=== PATIENT | female | born 1985 | race Caucasian/White ===

== ENCOUNTER 2023-11-16 16:50 | Inpatient (IN) | payer BC ==
[2023-11-16 17:57] VITALS: BMI 27.6
[2023-11-16] MEDS ORDERED: POLYETHYLENE GLYCOL (HEALTHYLAX) 3350 17 GM PACKET PO PRN (19:25)
[2023-11-16] MEDS ORDERED: NICOTINE POLACRILEX 2 MG GUM BUC PRN (19:25)
[2023-11-16] MEDS ORDERED: BENZONATATE 200 MG CAPSULE PO PRN (19:25)
[2023-11-16] MEDS ORDERED: NICOTINE POLACRILEX 2 MG LOZENGE BC PRN (19:25)
[2023-11-16] MEDS ORDERED: NALOXONE (NARCAN) HCL 4 MG/0.1 ML SPRAY NS PRN (19:25)
[2023-11-16] MEDS ORDERED: ACETAMINOPHEN 325 MG TABLET (FP) PO PRN (19:25)
[2023-11-16] MEDS ORDERED: guaiFENesin 600 MG TABLET.ER (FP) PO PRN (19:25)
[2023-11-16] MEDS ORDERED: NALOXONE HCL 0.4 MG/ML VIAL IM PRN (19:25)
[2023-11-16] MEDS ORDERED: ONDANSETRON *ODT* 4 MG TABLET SL PRN (19:25)
[2023-11-16] MEDS ORDERED: BENZOCAINE/MENTHOL (CHLORASEPTIC ) LOZENGE MM PRN (19:25)
[2023-11-16] MEDS ORDERED: DICYCLOMINE HCL 10 MG CAPSULE PO PRN (19:25)
[2023-11-16] MEDS ORDERED: IBUPROFEN 600 MG TABLET (FP) PO PRN (19:25)
[2023-11-16] MEDS ORDERED: P-EPHED 60MG/TRIPROLIDI 2.5MG TABLET PO PRN (19:25)
[2023-11-16] MEDS ORDERED: MAGNESIUM HYDROX 2400MG/30ML ORAL SUSPENSION 30 ML CUP PO PRN (19:25)
[2023-11-16] MEDS ORDERED: BISMUTH SUBSALICYLATE 524 MG/30 ML PO PRN (19:25)
[2023-11-16] MEDS ORDERED: IBUPROFEN 400 MG TABLET (FP) PO PRN (19:25)
[2023-11-16] MEDS ORDERED: LOPERAMIDE HCL 2 MG CAPSULE PO PRN (19:25)
[2023-11-16] MEDS: hydrOXYzine PAMOATE 25 MG CAPSULE (FP) PO PRN (20:32)
[2023-11-16] MEDS: METHOCARBAMOL 500 MG TABLET PO PRN (20:32)
[2023-11-16] MEDS: MELATONIN 5 MG TABLETS PO SCH (23:51)
[2023-11-16] MEDS: THIAMINE 100 MG TABLET PO SCH (23:51)
[2023-11-17] MEDS: PRENATAL VITAMINS W/ FOLIC ACID TABLET (FP) PO SCH (09:57)
[2023-11-17] MEDS ORDERED: clonazePAM 0.5 MG ODT TABLETS SL PRN (11:05)
[2023-11-17] MEDS: methaDONE HCL 10 MG TABLET (FOR DETOX USE ONLY) PO ONE (11:23)
[2023-11-17] MEDS: diazePAM 5 MG TABLET PO SCH (11:24)
[2023-11-17 13:26] LABS: POTASSIUM 3.7 mmol/L (3.5-5.1)
[2023-11-17 13:29] LABS: HEMATOCRIT 38.4 % (32.4-45.2); HEMOGLOBIN 13.2 GM/dL (10.7-15.3); MCH 29.9 pg (25.7-33.7); MCHC 34.3 g/dl (32.0-36.0); MEAN PLT VOLUME 7.3 fl (7.5-11.1); PLATELET COUNT 344 10^3/uL (134-434); RBC 4.42 M/mm3 (3.60-5.2); RDW 13.9 % (11.6-15.6); WHITE BLOOD COUNT 7.4 K/mm3 (4.0-10.0)
[2023-11-17 13:51] LABS: ALBUMIN 3.2 g/dl (3.4-5.0); BLOOD UREA NITROGEN 12.4 mg/dL (7-18); CALCIUM 8.8 mg/dL (8.5-10.1)
[2023-11-17 13:56] LABS: TOT PROT 6.7 g/dl (6.4-8.2)
[2023-11-17 13:58] LABS: BILIRUBIN,TOTAL 0.5 mg/dL (0.2-1); CREATININE 0.8 mg/dL (0.55-1.3)
[2023-11-18] MEDS: diazePAM 5 MG TABLET PO PRN (04:40)
[2023-11-18] MEDS: diazePAM 5 MG TABLET PO SCH (05:35)
[2023-11-18] MEDS ORDERED: methaDONE 40 MG, methaDONE 10 MG PO ONE (10:00)
[2023-11-18] MEDS: methaDONE HCL 40 MG DISPERSABLE TABLET PO ONE (10:04)
[2023-11-19] MEDS: diazePAM 5 MG TABLET PO SCH (05:37)
[2023-11-19] MEDS: methaDONE 40 MG, methaDONE 10 MG PO ONE (09:59)
[2023-11-19] MEDS ORDERED: methaDONE HCL 40 MG DISPERSABLE TABLET PO ONE (10:00)
[2023-11-19] MEDS ORDERED: methaDONE HCL 10 MG TABLET (FOR DETOX USE ONLY) PO ONE (10:00)
[2023-11-19] MEDS: amLODIPine BESYLATE 5 MG TABLET (FP) PO SCH (14:30)
[2023-11-20] MEDS ORDERED: cloNIDine HCL 0.1 MG TABLET PO PRN
[2023-11-20] MEDS: diazePAM 5 MG TABLET PO ONE (05:52)
[2023-11-20] MEDS: methaDONE 40 MG, methaDONE 20 MG PO ONE (09:37)
[2023-11-20] MEDS ORDERED: methaDONE HCL 40 MG DISPERSABLE TABLET PO ONE (10:00)
[2023-11-21] MEDS: methaDONE 40 MG, methaDONE 30 MG PO ONE (09:46)
[2023-11-21] MEDS ORDERED: methaDONE HCL 40 MG DISPERSABLE TABLET PO ONE (10:00)
[2023-11-21] MEDS ORDERED: methaDONE HCL 10 MG TABLET (FOR DETOX USE ONLY) PO ONE (10:00)
[2023-11-21] MEDS: diazePAM 5 MG TABLET PO ONE (10:04)
[2023-11-21] MEDS: MAG HYDROX/AL HYDROX/SIMETH 30 ML UNIT-DOSE CUP PO PRN (11:18)
[2023-11-22 09:48] VITALS: BP 124/62; PULSE 89; RESP 18; TEMP 97.3
[2023-11-22] MEDS: methaDONE HCL 40 MG DISPERSABLE TABLET PO ONE (09:58)
== END 2023-11-22 10:02 | disposition home or self-care (01) | DRG 773 ==
LOC: YASAS 16:50 → Y6N 19:45
PROVIDERS: ADMIT Allergy & Immunology; ATTEND Surgery
PROC: HZ2ZZZZ Detoxification Services for Substance Abuse Treatment (ICD-10-PCS; principal; 2023-11-16)
DX: F11.23 Opioid dependence with withdrawal (principal); F13.230 Sedative, hypnotic or anxiolytic dependence with withdrawal, uncomplicated; F14.20 Cocaine dependence, uncomplicated; F17.210 Nicotine dependence, cigarettes, uncomplicated; F41.9 Anxiety disorder, unspecified; I10 Essential (primary) hypertension
CPT/HCPCS: 36415; 80053; 80305; 80307; 81025; 83036; 85027; 86780; 93005; 93010

== ENCOUNTER 2023-12-10 13:59 | Inpatient (IN) | payer BC ==
[2023-12-10 14:53] VITALS: BMI 27.2
[2023-12-10] MEDS ORDERED: POLYETHYLENE GLYCOL (HEALTHYLAX) 3350 17 GM PACKET PO PRN (16:37)
[2023-12-10] MEDS ORDERED: MAGNESIUM HYDROX 2400MG/30ML ORAL SUSPENSION 30 ML CUP PO PRN (16:37)
[2023-12-10] MEDS ORDERED: DICYCLOMINE HCL 10 MG CAPSULE PO PRN (16:37)
[2023-12-10] MEDS ORDERED: BENZONATATE 200 MG CAPSULE PO PRN (16:37)
[2023-12-10] MEDS ORDERED: BISMUTH SUBSALICYLATE 524 MG/30 ML PO PRN (16:37)
[2023-12-10] MEDS ORDERED: NALOXONE HCL 0.4 MG/ML VIAL IM PRN (16:37)
[2023-12-10] MEDS ORDERED: BENZOCAINE/MENTHOL (CHLORASEPTIC ) LOZENGE MM PRN (16:37)
[2023-12-10] MEDS ORDERED: ONDANSETRON *ODT* 4 MG TABLET SL PRN (16:37)
[2023-12-10] MEDS ORDERED: guaiFENesin 600 MG TABLET.ER (FP) PO PRN (16:37)
[2023-12-10] MEDS ORDERED: MAG HYDROX/AL HYDROX/SIMETH 30 ML UNIT-DOSE CUP PO PRN (16:37)
[2023-12-10] MEDS ORDERED: NALOXONE (NARCAN) HCL 4 MG/0.1 ML SPRAY NS PRN ×2 (16:37→16:40)
[2023-12-10] MEDS ORDERED: LOPERAMIDE HCL 2 MG CAPSULE PO PRN (16:37)
[2023-12-10] MEDS ORDERED: methaDONE HCL 10 MG TABLET (FOR DETOX USE ONLY) ONE (17:25)
[2023-12-10] MEDS ORDERED: cloNIDine HCL 0.1 MG TABLET ONE (17:26)
[2023-12-10] MEDS ORDERED: NICOTINE 7 MG/24 HOURS TOPICAL PATCH TD ONE (17:26)
[2023-12-10] MEDS ORDERED: PRENATAL VITAMINS W/ FOLIC ACID TABLET (FP) PO ONE (17:26)
[2023-12-10] MEDS: NICOTINE 7 MG/24 HOURS TOPICAL PATCH TD SCH (17:32)
[2023-12-10] MEDS: methaDONE HCL 10 MG TABLET (FOR DETOX USE ONLY) PO ONE (17:33)
[2023-12-10] MEDS: PRENATAL VITAMINS W/ FOLIC ACID TABLET (FP) PO SCH (17:35)
[2023-12-10] MEDS: cloNIDine HCL 0.1 MG TABLET PO SCH (17:36)
[2023-12-10] MEDS: THIAMINE 100 MG TABLET PO SCH (22:03)
[2023-12-10] MEDS: CEFUROXIME AXETIL 500 MG TABLET PO SCH (22:04)
[2023-12-10] MEDS: MELATONIN 5 MG TABLETS PO SCH (22:05)
[2023-12-10] MEDS: BUPRENORPHINE/NALOXONE 0.5 MG/0.125 MG FILM SL ONE (22:07)
[2023-12-11] MEDS: BUPRENORPHINE/NALOXONE 0.5 MG/0.125 MG FILM SL SCH (09:17)
[2023-12-11 12:12] LABS: HEMATOCRIT 38.5 % (32.4-45.2); MCH 29.2 pg (25.7-33.7); MCHC 33.8 g/dl (32.0-36.0); MEAN CELL VOLUME 86.4 fl (80-96); MEAN PLT VOLUME 7.1 fl (7.5-11.1); PLATELET COUNT 327 10^3/uL (134-434); RBC 4.45 M/mm3 (3.60-5.2); RDW 13.9 % (11.6-15.6); WHITE BLOOD COUNT 7.4 K/mm3 (4.0-10.0)
[2023-12-11 12:19] LABS: POTASSIUM 4.5 mmol/L (3.5-5.1)
[2023-12-11 12:22] LABS: CALCIUM 8.8 mg/dL (8.5-10.1)
[2023-12-11 12:23] LABS: ALBUMIN 3.2 g/dl (3.4-5.0); BLOOD UREA NITROGEN 13.5 mg/dL (7-18)
[2023-12-11 12:25] LABS: CREATININE 0.7 mg/dL (0.55-1.3)
[2023-12-11 12:36] LABS: BILIRUBIN,TOTAL 0.6 mg/dL (0.2-1); TOT PROT 7.3 g/dl (6.4-8.2)
[2023-12-11 12:51] LABS: HIV INTERPRETATION NEGATIVE (NEGATIVE)
[2023-12-12] MEDS: methaDONE HCL 10 MG TABLET (FOR DETOX USE ONLY) PO ONE (09:28)
[2023-12-12] MEDS: BUPRENORPHINE/NALOXONE 2 MG/0.5 MG FILM PACKET SL SCH (09:29)
[2023-12-13] MEDS: DEXTROAMPHETAMINE/AMPHETAMINE 10 MG CAP.ER.24H PO SCH (09:36)
[2023-12-13] MEDS: BUPRENORPHINE/NALOXONE 4 MG/1 MG FILM PACKET SL SCH (09:36)
[2023-12-13] MEDS: hydrOXYzine PAMOATE 25 MG CAPSULE (FP) PO PRN (17:51)
[2023-12-14] MEDS: IBUPROFEN 400 MG TABLET (FP) PO PRN (06:09)
[2023-12-14] MEDS: methaDONE HCL 10 MG TABLET (FOR DETOX USE ONLY) PO ONE (09:10)
[2023-12-14] MEDS: BUPRENORPHINE/NALOXONE 8 MG/2 MG FILM PACKET SL SCH (09:11)
[2023-12-14] MEDS: clonazePAM 0.5 MG ODT TABLETS SL SCH (11:01)
[2023-12-14] MEDS: IBUPROFEN 600 MG TABLET (FP) PO PRN (17:52)
[2023-12-14] MEDS: METHOCARBAMOL 500 MG TABLET PO PRN (17:54)
[2023-12-14] MEDS: ACETAMINOPHEN 325 MG TABLET (FP) PO PRN (22:09)
[2023-12-15 07:32] VITALS: RESP 16
[2023-12-15 09:20] VITALS: BP 136/83; PULSE 97; TEMP 98
[2023-12-15] MEDS: BUPRENORPHINE/NALOXONE 8 MG/2 MG FILM PACKET SL SCH (09:25)
== END 2023-12-15 09:52 | disposition home or self-care (01) | DRG 773 ==
LOC: YASAS 13:59 → Y3N 16:57
PROVIDERS: ADMIT Allergy & Immunology; ATTEND Surgery
PROC: HZ2ZZZZ Detoxification Services for Substance Abuse Treatment (ICD-10-PCS; principal; 2023-12-10)
DX: F11.23 Opioid dependence with withdrawal (principal); F14.20 Cocaine dependence, uncomplicated; F13.20 Sedative, hypnotic or anxiolytic dependence, uncomplicated; F17.210 Nicotine dependence, cigarettes, uncomplicated; Z86.59 Personal history of other mental and behavioral disorders
CPT/HCPCS: 36415; 80053; 80305; 81025; 85027; 86780; 86803; 87389

== ENCOUNTER 2024-02-26 11:51 | Inpatient (IN) | payer BC ==
[2024-02-26 12:30] VITALS: BMI 24.2
[2024-02-26] MEDS ORDERED: POLYETHYLENE GLYCOL (HEALTHYLAX) 3350 17 GM PACKET PO PRN (13:17)
[2024-02-26] MEDS ORDERED: DICYCLOMINE HCL 10 MG CAPSULE PO PRN (13:17)
[2024-02-26] MEDS ORDERED: LOPERAMIDE HCL 2 MG CAPSULE PO PRN (13:17)
[2024-02-26] MEDS ORDERED: P-EPHED 60MG/TRIPROLIDI 2.5MG TABLET PO PRN (13:17)
[2024-02-26] MEDS ORDERED: BISMUTH SUBSALICYLATE 262 MG/15 ML BTL PO PRN (13:17)
[2024-02-26] MEDS ORDERED: ONDANSETRON *ODT* 4 MG TABLET SL PRN (13:17)
[2024-02-26] MEDS ORDERED: ACETAMINOPHEN 325 MG TABLET (FP) PO PRN (13:17)
[2024-02-26] MEDS ORDERED: BENZONATATE 200 MG CAPSULE PO PRN (13:17)
[2024-02-26] MEDS ORDERED: MAGNESIUM HYDROX 2400MG/30ML ORAL SUSPENSION 30 ML CUP PO PRN (13:17)
[2024-02-26] MEDS ORDERED: IBUPROFEN 600 MG TABLET (FP) PO PRN (13:17)
[2024-02-26] MEDS ORDERED: NALOXONE (NARCAN) HCL 4 MG/0.1 ML SPRAY NS PRN (13:17)
[2024-02-26] MEDS ORDERED: MAG HYDROX/AL HYDROX/SIMETH 30 ML UNIT-DOSE CUP PO PRN (13:17)
[2024-02-26] MEDS ORDERED: guaiFENesin 600 MG TABLET.ER (FP) PO PRN (13:17)
[2024-02-26] MEDS ORDERED: NICOTINE POLACRILEX 2 MG GUM BUC PRN (13:17)
[2024-02-26] MEDS ORDERED: IBUPROFEN 400 MG TABLET (FP) PO PRN (13:17)
[2024-02-26] MEDS ORDERED: BENZOCAINE/MENTHOL (CHLORASEPTIC ) LOZENGE MM PRN (13:17)
[2024-02-26] MEDS ORDERED: NICOTINE POLACRILEX 2 MG LOZENGE BC PRN (13:17)
[2024-02-26] MEDS: NALOXONE (NYS OPIOID OVERDOSE PROGRAM) 4 MG/0.1 ML SPRAY NS ONE (14:20)
[2024-02-26] MEDS: CLINDAMYCIN HCL 150 MG CAPSULE (FP) PO SCH (15:00)
[2024-02-26] MEDS: diazePAM 5 MG TABLET PO PRN (17:20)
[2024-02-26] MEDS: methaDONE HCL 10 MG TABLET (FOR DETOX USE ONLY) PO ONE (19:04)
[2024-02-26] MEDS: cloNIDine HCL 0.1 MG TABLET PO PRN (21:13)
[2024-02-26] MEDS: METHOCARBAMOL 500 MG TABLET PO PRN (21:25)
[2024-02-26] MEDS: THIAMINE 100 MG TABLET PO SCH (21:25)
[2024-02-26] MEDS ORDERED: methaDONE HCL 10 MG TABLET (FOR DETOX USE ONLY) PO ONE (22:00)
[2024-02-27] MEDS: PRENATAL VITAMINS W/ FOLIC ACID TABLET (FP) PO SCH (10:08)
[2024-02-27 12:16] LABS: HEMATOCRIT 40.2 % (32.4-45.2); HEMOGLOBIN 13.5 GM/dL (10.7-15.3); MCHC 33.5 g/dl (32.0-36.0); MEAN CELL VOLUME 83.7 fl (80-96); MEAN PLT VOLUME 7.1 fl (7.5-11.1); PLATELET COUNT 632 10^3/uL (134-434); RDW 14.9 % (11.6-15.6); WHITE BLOOD COUNT 6.2 K/mm3 (4.0-10.0)
[2024-02-27 12:51] LABS: POTASSIUM 4.8 mmol/L (3.5-5.1)
[2024-02-27 12:55] LABS: ALBUMIN 3.3 g/dl (3.4-5.0); CALCIUM 9.5 mg/dL (8.5-10.1)
[2024-02-27 12:56] LABS: BLOOD UREA NITROGEN 13.5 mg/dL (7-18)
[2024-02-27 12:59] LABS: CREATININE 0.7 mg/dL (0.55-1.3)
[2024-02-27 13:00] LABS: BILIRUBIN,TOTAL 0.6 mg/dL (0.2-1); TOT PROT 7.6 g/dl (6.4-8.2)
[2024-02-28] MEDS: methaDONE HCL 10 MG TABLET (FOR DETOX USE ONLY) PO ONE (10:06)
[2024-02-28 15:07] LABS: BASO % 2.9 % (0-2.0); EOS % 2.2 % (0-4.5); HEMATOCRIT 39.9 % (32.4-45.2); HEMOGLOBIN 13.4 GM/dL (10.7-15.3); LYMPH % 21.9 % (8-40); MCH 28.7 pg (25.7-33.7); MCHC 33.6 g/dl (32.0-36.0); MEAN CELL VOLUME 85.4 fl (80-96); MEAN PLT VOLUME 7.1 fl (7.5-11.1); MONO % 4.1 % (3.8-10.2); NEUT % 68.9 % (42.8-82.8); PLATELET COUNT 652 10^3/uL (134-434); RBC 4.67 M/mm3 (3.60-5.2); RDW 14.8 % (11.6-15.6); WHITE BLOOD COUNT 7.6 K/mm3 (4.0-10.0)
[2024-02-28 15:39] LABS: POTASSIUM 4.5 mmol/L (3.5-5.1)
[2024-02-28 15:48] LABS: CALCIUM 9.4 mg/dL (8.5-10.1)
[2024-02-28 15:49] LABS: BLOOD UREA NITROGEN 14.6 mg/dL (7-18)
[2024-02-28 15:52] LABS: CREATININE 0.8 mg/dL (0.55-1.3)
[2024-02-29 06:20] VITALS: RESP 17
[2024-02-29 08:45] VITALS: BP 136/94; PULSE 91; TEMP 97.5
[2024-03-01] MEDS ORDERED: methaDONE HCL 10 MG TABLET (FOR DETOX USE ONLY) PO ONE (10:00)
== END 2024-02-29 10:10 | disposition home or self-care (01) | DRG 773 ==
LOC: YASAS 11:51 → Y3N 14:09
PROVIDERS: ADMIT Allergy & Immunology; ATTEND Surgery
PROC: HZ2ZZZZ Detoxification Services for Substance Abuse Treatment (ICD-10-PCS; principal; 2024-02-26)
DX: F11.23 Opioid dependence with withdrawal (principal); F14.20 Cocaine dependence, uncomplicated; F17.210 Nicotine dependence, cigarettes, uncomplicated; F41.9 Anxiety disorder, unspecified; F90.9 Attention-deficit hyperactivity disorder, unspecified type; L02.414 Cutaneous abscess of left upper limb; L02.413 Cutaneous abscess of right upper limb; Z88.8 Allergy status to other drugs, medicaments and biological substances
CPT/HCPCS: 36415; 80048; 80053; 80305; 81025; 85025; 85027; 86780; 93005; 93010